=== PATIENT | female | born 1945 | race African-American/Black ===

== ENCOUNTER → 2016-07-29 | Outpatient (CLI) | payer MEDICARE ==
[2016-07-29 08:42] LABS: ABSOLUTE EOSINOPHILS # (AUTO) 0.1 10^3/uL (0.0-0.6); ABSOLUTE LYMPHOCYTES (AUTO) 1.5 10^3/uL (0.5-4.7); ABSOLUTE MONOCYTES (AUTO) 0.4 10^3/uL (0.1-1.4); ABSOLUTE NEUT (AUTO) 2.4 10^3/uL (1.7-8.2); BASOPHILS % (AUTO) 1.1 % (0-2); EOSINOPHILS % (AUTO) 1.3 % (0-6); HEMATOCRIT 38.5 % (36.0-47.0); HEMOGLOBIN 12.4 g/dL (12.0-15.5); HGB HCT DIFFERENCE -1.3; LYMPHOCYTES % (AUTO) 33.7 % (13-45); MEAN CORPUSCULAR HEMOGLOBIN 25.5 pg (27.0-33.4); MEAN CORPUSCULAR HGB CONC 32.1 g/dL (32.0-36.0); MEAN CORPUSCULAR VOLUME 80 fl (80-97); MONOCYTES % (AUTO) 9.3 % (3-13); RED BLOOD COUNT 4.84 10^6/uL (3.72-5.28); RED CELL DISTRIBUTION WIDTH 15.4 % (11.5-14.0); SEGMENTED NEUTROPHILS % (AUTO) 54.6 % (42-78); WHITE BLOOD COUNT 4.4 10^3/uL (4.0-10.5)
[2016-07-29 09:10] LABS: ALANINE AMINOTRANSFERASE 23 U/L (9-52); ALBUMIN 4.2 g/dL (3.5-5.0); ALKALINE PHOSPHATASE 64 U/L (38-126); ANION GAP 13 (5-19); ASPARTATE AMINO TRANSFERASE 18 U/L (14-36); BILIRUBIN,TOTAL 0.6 mg/dL (0.2-1.3); BLOOD UREA NITROGEN 16 mg/dL (7-20); CALCIUM 9.4 mg/dL (8.4-10.2); CARBON DIOXIDE 26 mmol/L (22-30); CHLORIDE 105 mmol/L (98-107); CHOLESTEROL 153.07 mg/dL (0-200); CREATININE RESULT 0.83 mg/dL (0.52-1.25); Direct HDL 50 mg/dL (>40); GLUCOSE 106 mg/dL (75-110); POTASSIUM 4.3 mmol/L (3.6-5.0); SODIUM 144.2 mmol/L (137-145); TOTAL PROTEIN 7.4 g/dL (6.3-8.2); TRIGLYCERIDES 81 mg/dL (<150)
[2016-07-29 09:20] LABS: DIRECT LDL 75 mg/dL (<100)
== END ==
LOC: OD 07:53
PROVIDERS: ATTEND Internal Medicine
DX: E11.9 Type 2 diabetes mellitus without complications (principal); I10 Essential (primary) hypertension; E78.5 Hyperlipidemia, unspecified; M53.83 Other specified dorsopathies, cervicothoracic region
CPT/HCPCS: 36415; 80053; 80061; 83036; 85025

== ENCOUNTER → 2017-09-08 | Outpatient (CLI) | payer MEDICARE, OTHER ==
--- NOTE | 2017-09-08 14:37 | RADIOLOGY REPORT (SQ) ---
EXAM DESCRIPTION: CAROTID DOPPLER COMPLETED DATE/TIME: 09/08/2017 1:56 pm REASON FOR STUDY: CAROTID BRUIT R09.89 OTH SYMPTOMS AND SIGNS INVOLVING THE CIRC AND RESP SY COMPARISON: 09/23/2013 TECHNIQUE: Grayscale ultrasound, Doppler velocity and spectra, and color Doppler images acquired of the extra-cranial carotid and vertebral arteries. Images stored on PACS. LIMITATIONS: None. FINDINGS: RIGHT CAROTID CCA Velocities: Within normal limits. ICA Velocities Peak systolic 1.23 m/s. End diastolic 0.45 m/s. Proximal ICA/CCA peak systolic ratio 1.8. Mild intimal thickening in the bulb and proximal ICA. LEFT CAROTID CCA Velocities: Within normal limits. ICA Velocities Peak systolic 0.60 m/s. End diastolic 0.14 m/s. Proximal ICA/CCA peak systolic ratio 1.0. Mild intimal thickening in the bulb and proximal ICA. VERTEBRAL ARTERIES: Antegrade flow. Normal waveforms. SUBCLAVIAN ARTERIES: Not imaged. OTHER: No other significant finding. IMPRESSION: NO HEMODYNAMICALLY SIGNIFICANT STENOSIS. COMMENT: Quality ID #[id number]: Velocity criteria are extrapolated from the diameter data as defined by t he Society of Radiologists in Ultrasound Consensus Conference. Radiology 2003: 229; 340-346. TECHNICAL DOCUMENTATION: JOB ID: [id number] [employer]- All Rights Reserved Reading location - IP/workstation name: [email or web address]
== END ==
LOC: SP 12:42
PROVIDERS: ATTEND Internal Medicine
DX: R09.89 Other specified symptoms and signs involving the circulatory and respiratory systems (principal)
CPT/HCPCS: 93880

== ENCOUNTER → 2018-03-09 | Outpatient (CLI) | payer MEDICARE ==
[2018-03-09 11:12] LABS: ALANINE AMINOTRANSFERASE 24 U/L (9-52); ALBUMIN 4.2 g/dL (3.5-5.0); ALKALINE PHOSPHATASE 57 U/L (38-126); ANION GAP 11 (5-19); ASPARTATE AMINO TRANSFERASE 21 U/L (14-36); BILIRUBIN,DIRECT 0.3 mg/dL (0.0-0.4); BILIRUBIN,TOTAL 0.5 mg/dL (0.2-1.3); BLOOD UREA NITROGEN 14 mg/dL (7-20); CALCIUM 9.6 mg/dL (8.4-10.2); CARBON DIOXIDE 27 mmol/L (22-30); CHLORIDE 105 mmol/L (98-107); GLUCOSE 99 mg/dL (75-110); POTASSIUM 4.6 mmol/L (3.6-5.0); SODIUM 142.9 mmol/L (137-145); TOTAL PROTEIN 7.8 g/dL (6.3-8.2); TRIGLYCERIDES 85 mg/dL (<150)
[2018-03-09 11:23] LABS: DIRECT LDL 72 mg/dL (<100)
[2018-03-10 14:40] LABS: CREATININE URINE 144.7 mg/dL (Not Estab.); MICROALBUMIN URINE 3.2 ug/mL (Not Estab.)
[2018-03-10 16:39] LABS: ABSOLUTE BASOPHILS # (AUTO) 0.1 10^3/uL (0.0-0.2); ABSOLUTE EOSINOPHILS # (AUTO) 0.1 10^3/uL (0.0-0.6); ABSOLUTE LYMPHOCYTES (AUTO) 2.3 10^3/uL (0.5-4.7); ABSOLUTE MONOCYTES (AUTO) 1.1 10^3/uL (0.1-1.4); ABSOLUTE NEUT (AUTO) 4.7 10^3/uL (1.7-8.2); BASOPHILS % (AUTO) 0.7 % (0-2); EOSINOPHILS % (AUTO) 1.1 % (0-6); HEMATOCRIT 34.7 % (36.0-47.0); HEMOGLOBIN 11.1 g/dL (12.0-15.5); LYMPHOCYTES % (AUTO) 27.6 % (13-45); MEAN CORPUSCULAR HEMOGLOBIN 23.5 pg (27.0-33.4); MEAN CORPUSCULAR HGB CONC 31.9 g/dL (32.0-36.0); MEAN CORPUSCULAR VOLUME 74 fl (80-97); MONOCYTES % (AUTO) 13.1 % (3-13); PLATELET COUNT 241 10^3/uL (150-450); RED BLOOD COUNT 4.72 10^6/uL (3.72-5.28); RED CELL DISTRIBUTION WIDTH 17.9 % (11.5-14.0); SEGMENTED NEUTROPHILS % (AUTO) 57.5 % (42-78); TOTAL CELLS COUNTED % (AUTO) 100 %; WHITE BLOOD COUNT 8.3 10^3/uL (4.0-10.5)
== END ==
LOC: OD 09:39
PROVIDERS: ATTEND Internal Medicine
DX: E11.9 Type 2 diabetes mellitus without complications (principal); I10 Essential (primary) hypertension; E78.5 Hyperlipidemia, unspecified; I25.10 Atherosclerotic heart disease of native coronary artery without angina pectoris
CPT/HCPCS: 36415; 80053; 80061; 82043; 82570; 83036; 84443; 85025

== ENCOUNTER 2018-03-13 13:02 | Emergency (ER) | payer MEDICARE ==
--- NOTE | 2018-03-13 13:40 | ER Document Report ---
ED Medical Screen (RME) - General Chief Complaint: Rectal Bleeding Stated Complaint: BLOOD IN STOOL Time Seen by Provider: 03/13/18 13:39 Mode of Arrival: Ambulatory Information source: Patient TRAVEL OUTSIDE OF THE [place] IN LAST 30 DAYS: No - HPI Patient complains to provider of: frectal bleeding Onset: Yesterday - pt. with multiple episodes of bright red blood in stool yesterday and today - Related Data Allergies/Adverse Reactions: No Known Allergies Allergy (Verified 03/13/18 13:04) Past Medical History - Past Medical History Cardiac Medical History: Reports: Hx Hypercholesterolemia, Hx Hypertension Denies: Hx Coronary Artery Disease, Hx Heart Attack Pulmonary Medical History: Denies: Hx Asthma, Hx Bronchitis, Hx COPD, Hx Pneumonia Neurological Medical History: Denies: Hx Cerebrovascular Accident, Hx Seizures Endocrine Medical History: Reports: Hx Diabetes Mellitus Type 2 Musculoskeltal Medical History: Reports Hx Arthritis Past Surgical History: Reports: Hx Gynecologic Surgery - hysterectomy, Hx Hysterectomy - Immunizations Hx Diphtheria, Pertussis, Tetanus Vaccination: Yes Physical Exam - Vital signs Vitals: Temp Pulse Resp BP Pulse Ox 99.0 F 81 20 146/80 H 97 03/13/18 13:20 03/13/18 13:20 03/13/18 13:20 03/13/18 13:20 03/13/18 13:20 Course - Vital Signs Vital signs: Temp Pulse Resp BP Pulse Ox 99.0 F 81 20 146/80 H 97 03/13/18 13:20 03/13/18 13:20 03/13/18 13:20 03/13/18 13:20 03/13/18 13:20 Doctor's Discharge - Discharge Referrals: RONA SMITH MD [Primary Care Provider] - Follow up as needed
[2018-03-13 14:07] LABS: ABSOLUTE BASOPHILS # (AUTO) 0.1 10^3/uL (0.0-0.2); ABSOLUTE LYMPHOCYTES (AUTO) 1.9 10^3/uL (0.5-4.7); ABSOLUTE MONOCYTES (AUTO) 0.7 10^3/uL (0.1-1.4); BASOPHILS % (AUTO) 0.9 % (0-2); EOSINOPHILS % (AUTO) 0.8 % (0-6); LYMPHOCYTES % (AUTO) 33.1 % (13-45); MEAN CORPUSCULAR HEMOGLOBIN 23.5 pg (27.0-33.4); MEAN CORPUSCULAR HGB CONC 32.3 g/dL (32.0-36.0); MEAN CORPUSCULAR VOLUME 73 fl (80-97); PLATELET COUNT 276 10^3/uL (150-450); RED BLOOD COUNT 4.66 10^6/uL (3.72-5.28); RED CELL DISTRIBUTION WIDTH 18.1 % (11.5-14.0); SEGMENTED NEUTROPHILS % (AUTO) 53.2 % (42-78); TOTAL CELLS COUNTED % (AUTO) 100 %; WHITE BLOOD COUNT 5.7 10^3/uL (4.0-10.5)
[2018-03-13 14:31] LABS: ALANINE AMINOTRANSFERASE 20 U/L (9-52); ALBUMIN 4.2 g/dL (3.5-5.0); ALKALINE PHOSPHATASE 58 U/L (38-126); ANION GAP 10 (5-19); ASPARTATE AMINO TRANSFERASE 22 U/L (14-36); BILIRUBIN,DIRECT 0.1 mg/dL (0.0-0.4); BILIRUBIN,TOTAL 0.5 mg/dL (0.2-1.3); BLOOD UREA NITROGEN 12 mg/dL (7-20); CARBON DIOXIDE 27 mmol/L (22-30); CHLORIDE 107 mmol/L (98-107); GLUCOSE 80 mg/dL (75-110); POTASSIUM 4.3 mmol/L (3.6-5.0); SODIUM 144.2 mmol/L (137-145)
--- NOTE | 2018-03-13 16:30 | ER Document Report ---
ED GI Bleed / Rectal Pain - General Chief Complaint: Rectal Bleeding Stated Complaint: BLOOD IN STOOL Time Seen by Provider: 03/13/18 13:39 Mode of Arrival: Ambulatory Notes: 72-year-old female to the emergency department chief complaint of rectal bleeding. Patient states that she has had hemorrhoids in the past. Thinks that she has a hemorrhoid but is unsure and wants to get it checked out. Denies any other symptoms at this time. Denies any major pain in the rectum. TRAVEL OUTSIDE OF THE [place] IN LAST 30 DAYS: No - HPI Patient complains to provider of: Bright red bld from rect. Onset: Last week Timing/Duration: Intermittent Quality of pain: No pain - Related Data Allergies/Adverse Reactions: No Known Allergies Allergy (Verified 03/13/18 13:04) Past Medical History - General Information source: Patient - Social History Smoking Status: Never Smoker Frequency of alcohol use: None Drug Abuse: None Family History: Reviewed & Not Pertinent Patient has suicidal ideation: No Patient has homicidal ideation: No - Past Medical History Cardiac Medical History: Reports: Hx Hypercholesterolemia, Hx Hypertension Denies: Hx Coronary Artery Disease, Hx Heart Attack Pulmonary Medical History: Denies: Hx Asthma, Hx Bronchitis, Hx COPD, Hx Pneumonia Neurological Medical History: Denies: Hx Cerebrovascular Accident, Hx Seizures Endocrine Medical History: Reports: Hx Diabetes Mellitus Type 2 Renal/ Medical History: Denies: Hx Peritoneal Dialysis Musculoskeletal Medical History: Reports Hx Arthritis Past Surgical History: Reports: Hx Gynecologic Surgery - hysterectomy, Hx Hysterectomy - Immunizations Hx Diphtheria, Pertussis, Tetanus Vaccination: Yes Review of Systems - Review of Systems Notes: Constitutional: denies: Chills, Diaphoresis, Fever, Malaise, Weakness EENT: denies: Eye discharge, Blurred vision, Tearing, Double vision, Nose congestion, Nose discharge, Throat swelling, Mouth pain Cardiovascular: denies: Palpitations, Heart racing, Orthopnea, Dyspnea, Chest pain Respiratory: denies: Cough, Hurts to breathe, Wheezing, Shortness of breath Gastrointestinal: denies: Abdominal pain, Diarrhea, Nausea, Vomiting, Black stools,. Does complain of bright red blood in stool Genitourinary: denies: Burning, Dysuria, Discharge, Frequency, Flank pain, Hematuria Musculoskeletal: denies: Joint pain, Joint swelling, Muscle pain, Muscle stiffness, back pain Hematologic/Lymphatic: denies: Anemia, Easy bleeding, Easy bruising, Blood clots Neurological/Psychological: denies: Confusion, Dementia, Depression, Loss of consciousness Skin: No lesions, no masses, no skin breakdown, no abscesses Physical Exam - Vital signs Vitals: Temp Pulse Resp BP Pulse Ox 99.0 F 81 20 146/80 H 97 03/13/18 13:20 03/13/18 13:20 03/13/18 13:20 03/13/18 13:20 03/13/18 13:20 Interpretation: Normal - General General appearance: Appears well, Alert - HEENT Head: Normocephalic, Atraumatic Eyes: Normal Pupils: PERRL - Respiratory Respiratory status: No respiratory distress Chest status: Nontender Breath sounds: Normal Chest palpation: Normal - Cardiovascular Rhythm: Regular Heart sounds: Normal auscultation Murmur: No - Abdominal Inspection: Normal Distension: No distension Bowel sounds: Normal Tenderness: Nontender Organomegaly: No organomegaly - Rectal Stool: Heme negative Hemorrhoids: Internal - Back Back: Normal, Nontender - Extremities General upper extremity: Normal inspection, Nontender, Normal color, Normal ROM , Normal temperature General lower extremity: Normal inspection, Nontender, Normal color, Normal ROM , Normal temperature, Normal weight bearing. No: Chet's sign - Neurological Neuro grossly intact: Yes Cognition: Normal Orientation: AAOx4 Froylan Coma Scale Eye Opening: Spontaneous Froylan Coma Scale Verbal: Oriented Froylan Coma Scale Motor: Obeys Commands Froylan Coma Scale Total: 15 Speech: Normal Motor strength normal: LUE, RUE, LLE, RLE Sensory: Normal - Psychological Associated symptoms: Normal affect, Normal mood - Skin Skin Temperature: Warm Skin Moisture: Dry Skin Color: Normal Course - Re-evaluation Re-evalutation: 03/13/18 20:16 Patient does have evidence of an internal hemorrhoid. No active bleeding at this time. I have given her strict instructions that although I think it is not hemorrhoid there is always a possibility that this could represent some other pathology such as a rectal carcinoma. I have given her follow-up information for both a general surgeon as well as a crossbar frame wirer. At the minimum patient needs an in office anoscopy to evaluate this more appropriately. Patient did have a colonoscopy within the last 12 months. Patient is comfortable with this plan. At this time we will discharge her in stable condition. - Vital Signs Vital signs: Temp Pulse Resp BP Pulse Ox 98.6 F 73 14 123/70 98 03/13/18 16:54 03/13/18 16:54 03/13/18 16:54 03/13/18 16:54 03/13/18 16:54 - Laboratory Result Diagrams: 03/13/18 13:50 03/13/18 13:50 Laboratory results interpreted by me: 03/13/18 13:50 Hgb 11.0 L Hct 34.0 L MCV 73 L MCH 23.5 L RDW 18.1 H Discharge - Discharge Clinical Impression: Internal hemorrhoid Condition: Good Disposition: HOME, SELF-CARE Instructions: Hemorrhoids ([facility]), Rectal Bleeding, Unclear Cause ([facility]) Additional Instructions: It is highly likely that you have an internal hemorrhoid however I am not a general surgeon or crossbar frame wirer. Anytime that you can feel a mass on physical exam and you are having bleeding this needs to be evaluated by a surgeon or crossbar frame wirer. I have given you follow-up information for both. Please schedule an appointment as soon as possible with either a crossbar frame wirer or a general surgeon to have a repeat exam performed. In the event that you begin to have any worsening bleeding, pain, passing out or other symptoms please return immediately Referrals: RONA SMITH MD [Primary Care Provider] - Follow up as needed NAE MARINA MD [[facility]] - Follow up in 3-5 days CAMPOS MAY MD [ACTIVE STAFF] - Follow up in 3-5 days
[2018-03-13 16:56] VITALS: BP 123/70
== END 2018-03-13 16:56 | disposition home or self-care (01) ==
LOC: ER 13:02
DX: K64.8 Other hemorrhoids (principal); K62.5 Hemorrhage of anus and rectum; E11.9 Type 2 diabetes mellitus without complications; I10 Essential (primary) hypertension
CPT/HCPCS: 36415; 80053; 82272; 82728; 83540; 83550; 85025; 99283

== ENCOUNTER → 2018-03-13 | Outpatient (CLI) | payer MEDICARE ==
[2018-03-13 12:49] LABS: IRON(TIBC) 34.4 ug/dL (37-170)
[2018-03-13 13:25] LABS: FERRITIN 9.85 ng/mL (11.1-264.0)
== END ==
LOC: LAB 10:21
PROVIDERS: ATTEND Internal Medicine
DX: D64.9 Anemia, unspecified (principal)
CPT/HCPCS: 82728; 83540; 83550

== ENCOUNTER 2018-07-26 13:32 | Emergency (ER) | payer MEDICARE ==
--- NOTE | 2018-07-26 14:30 | ER Document Report ---
ED General - General Chief Complaint: Shortness Of Breath Stated Complaint: SHORT OF BREATH,CHEST TIGHTNESS Time Seen by Provider: 07/26/18 14:14 Primary Care Provider: RONA SMITH MD [Primary Care Provider] - Follow up as needed Notes: 73-year-old female patient emergency department for evaluation of "shortness of breath and not feeling well". He really denies chest pain but states that she feels a funny feeling in her chest every now and then. Feels like she cannot catch her breath but not necessarily what she would describe her shortness of breath. States that the symptoms have been going on and off for more than 2 months. Her son is in town and she mentioned that she felt a little funny feeling in her chest so he made her come in here and get checked out. Currently, patient denies any chest pain. Patient followed locally by Dr. Smith. She does not know what medication she takes but has a list for me to look at. States that she has been taking all of her medications. TRAVEL OUTSIDE OF THE [place] IN LAST 30 DAYS: No - HPI Onset/Duration: Gradual Quality of pain: No pain Severity: Mild Pain Level: 0 Associated symptoms: Shortness of breath - Related Data Allergies/Adverse Reactions: No Known Allergies Allergy (Verified 03/13/18 13:04) Past Medical History - General Information source: Patient - Social History Smoking Status: Never Smoker Frequency of alcohol use: None Drug Abuse: None Lives with: Alone Family History: Reviewed & Not Pertinent - Past Medical History Cardiac Medical History: Reports: Hx Hypercholesterolemia, Hx Hypertension Denies: Hx Coronary Artery Disease, Hx Heart Attack Pulmonary Medical History: Denies: Hx Asthma, Hx Bronchitis, Hx COPD, Hx Pneumonia Neurological Medical History: Denies: Hx Cerebrovascular Accident, Hx Seizures Endocrine Medical History: Reports: Hx Diabetes Mellitus Type 2 Renal/ Medical History: Denies: Hx Peritoneal Dialysis Musculoskeletal Medical History: Reports Hx Arthritis Past Surgical History: Reports: Hx Gynecologic Surgery - hysterectomy, Hx Hysterectomy - Immunizations Hx Diphtheria, Pertussis, Tetanus Vaccination: Yes Review of Systems - Review of Systems Notes: Constitutional: denies: Chills, Diaphoresis, Fever, Malaise, Weakness EENT: denies: Eye discharge, Blurred vision, Tearing, Double vision, Nose congestion, Nose discharge, Throat swelling, Mouth pain Cardiovascular: denies: Palpitations, Heart racing, Orthopnea, Dyspnea, Chest pain Respiratory: denies: Cough, Hurts to breathe, Wheezing, +Shortness of breath Gastrointestinal: denies: Abdominal pain, Diarrhea, Nausea, Vomiting, Black stools, bright red blood in stool Genitourinary: denies: Burning, Dysuria, Discharge, Frequency, Flank pain, Hematuria Musculoskeletal: denies: Joint pain, Joint swelling, Muscle pain, Muscle stiffness, back pain Hematologic/Lymphatic: denies: Anemia, Easy bleeding, Easy bruising, Blood clots Neurological/Psychological: denies: Confusion, Dementia, Depression, Loss of consciousness Skin: No lesions, no masses, no skin breakdown, no abscesses Physical Exam - Vital signs Vitals: Temp Pulse Resp BP Pulse Ox 98.4 F 73 16 174/76 H 98 07/26/18 13:39 07/26/18 13:39 07/26/18 13:39 07/26/18 13:39 07/26/18 13:39 Interpretation: Normal - General General appearance: Appears well, Alert - HEENT Head: Normocephalic, Atraumatic Eyes: Normal Pupils: PERRL - Respiratory Respiratory status: No respiratory distress Chest status: Nontender Breath sounds: Normal Chest palpation: Normal - Cardiovascular Rhythm: Regular Heart sounds: Normal auscultation Murmur: No - Abdominal Inspection: Normal Distension: No distension Bowel sounds: Normal Tenderness: Nontender Organomegaly: No organomegaly - Back Back: Normal, Nontender - Extremities General upper extremity: Normal inspection, Nontender, Normal color, Normal ROM, Normal temperature. No: Edema General lower extremity: Normal inspection, Nontender, Normal color, Normal ROM, Normal temperature, Normal weight bearing. No: Edema, Chet's sign - Neurological Neuro grossly intact: Yes Cognition: Normal Orientation: AAOx4 Froylan Coma Scale Eye Opening: Spontaneous Froylan Coma Scale Verbal: Oriented Orange Coma Scale Motor: Obeys Commands Orange Coma Scale Total: 15 Speech: Normal Motor strength normal: LUE, RUE, LLE, RLE Sensory: Normal - Psychological Associated symptoms: Normal affect, Normal mood - Skin Skin Temperature: Warm Skin Moisture: Dry Skin Color: Normal, Other - No open sores or lesions on her feet. Course - Re-evaluation Re-evalutation: 07/26/18 17:18 Laboratory 07/26/18 07/26/18 07/26/18 14:14 14:14 14:14 WBC 5.2 RBC 4.83 Hgb 13.6 Hct 40.3 MCV 84 MCH 28.2 MCHC 33.8 RDW 14.4 H Plt Count 227 Seg Neutrophils % 56.7 Lymphocytes % 30.8 Monocytes % 10.7 Eosinophils % 0.5 Basophils % 1.3 Absolute Neutrophils 3.0 Absolute Lymphocytes 1.6 Absolute Monocytes 0.6 Absolute Eosinophils 0.0 Absolute Basophils 0.1 Sodium 144.1 Potassium 4.3 Chloride 108 H Carbon Dioxide 26 Anion Gap 10 BUN 13 Creatinine 0.72 Est GFR ( Amer) > 60 Est GFR (Non-Af Amer) > 60 Glucose 87 Calcium 9.7 Total Bilirubin 0.5 Direct Bilirubin 0.2 Neonat Total Bilirubin Not Reportable Neonat Direct Bilirubin Not Reportable Neonat Indirect Bili Not Reportable AST 22 ALT 21 Alkaline Phosphatase 54 Creatine Kinase 66 CK-MB (CK-2) 0.35 Troponin I < 0.012 NT-Pro-B Natriuret Pep 67 Total Protein 7.5 Albumin 4.4 Urine Color Urine Appearance Urine pH Ur Specific [place] Urine Protein Urine Glucose (UA) Urine Ketones Urine Blood Urine Nitrite Urine Bilirubin Urine Urobilinogen Ur Leukocyte Esterase Urine WBC (Auto) Urine RBC (Auto) Squamous Epi Cells Auto Urine Mucus (Auto) Urine Ascorbic Acid 07/26/18 16:15 WBC RBC Hgb Hct MCV MCH MCHC RDW Plt Count Seg Neutrophils % Lymphocytes % Monocytes % Eosinophils % Basophils % Absolute Neutrophils Absolute Lymphocytes Absolute Monocytes Absolute Eosinophils Absolute Basophils Sodium Potassium Chloride Carbon Dioxide Anion Gap BUN Creatinine Est GFR ( Amer) Est GFR (Non-Af Amer) Glucose Calcium Total Bilirubin Direct Bilirubin Neonat Total Bilirubin Neonat Direct Bilirubin Neonat Indirect Bili AST ALT Alkaline Phosphatase Creatine Kinase CK-MB (CK-2) Troponin I NT-Pro-B Natriuret Pep Total Protein Albumin Urine Color STRAW Urine Appearance CLEAR Urine pH 6.0 Ur Specific [place] 1.005 Urine Protein NEGATIVE Urine Glucose (UA) NEGATIVE Urine Ketones NEGATIVE Urine Blood NEGATIVE Urine Nitrite NEGATIVE Urine Bilirubin NEGATIVE Urine Urobilinogen NEGATIVE Ur Leukocyte Esterase NEGATIVE Urine WBC (Auto) 0 Urine RBC (Auto) 0 Squamous Epi Cells Auto <1 Urine Mucus (Auto) RARE Urine Ascorbic Acid NEGATIVE Chest X-Ray 07/26/18 14:27 IMPRESSION: NO ACUTE FINDINGS. Patient has no significant abnormalities seen on labs today. She has not had any active chest pain at this time or prior to arrival. Symptoms have been present for several months. Patient was encouraged to come here by her son. At this time patient would like to go home. I find nothing that indicates she is having any major acute issues. Patient would do well to be followed by her regular doctor for this condition if symptoms persist. - Vital Signs Vital signs: Temp Pulse Resp BP Pulse Ox 98.4 F 73 16 152/89 H 99 07/26/18 13:39 07/26/18 13:39 07/26/18 14:06 07/26/18 14:06 07/26/18 14:06 - Laboratory Result Diagrams: 07/26/18 14:14 07/26/18 14:14 Laboratory results interpreted by me: 07/26/18 07/26/18 14:14 14:14 RDW 14.4 H Chloride 108 H - EKG Interpretation by Me EKG shows normal: Sinus rhythm, [place], Intervals, QRS Complexes, ST-T Waves Discharge - Discharge Clinical Impression: Palpitations Condition: Good Disposition: HOME, SELF-CARE Instructions: Palpitations (Irregular or Rapid Heartrate) ([facility]) Additional Instructions: Please follow-up with your regular doctor for further outpatient testing and t reatment. Return for worsening or concerns Referrals: RONA SMITH MD [Primary Care Provider] - Follow up tomorrow
[2018-07-26 14:38] LABS: ABSOLUTE BASOPHILS # (AUTO) 0.1 10^3/uL (0.0-0.2); ABSOLUTE LYMPHOCYTES (AUTO) 1.6 10^3/uL (0.5-4.7); ABSOLUTE MONOCYTES (AUTO) 0.6 10^3/uL (0.1-1.4); BASOPHILS % (AUTO) 1.3 % (0-2); EOSINOPHILS % (AUTO) 0.5 % (0-6); HEMATOCRIT 40.3 % (36.0-47.0); HEMOGLOBIN 13.6 g/dL (12.0-15.5); LYMPHOCYTES % (AUTO) 30.8 % (13-45); MEAN CORPUSCULAR HEMOGLOBIN 28.2 pg (27.0-33.4); MEAN CORPUSCULAR HGB CONC 33.8 g/dL (32.0-36.0); MEAN CORPUSCULAR VOLUME 84 fl (80-97); MONOCYTES % (AUTO) 10.7 % (3-13); PLATELET COUNT 227 10^3/uL (150-450); RED BLOOD COUNT 4.83 10^6/uL (3.72-5.28); RED CELL DISTRIBUTION WIDTH 14.4 % (11.5-14.0); SEGMENTED NEUTROPHILS % (AUTO) 56.7 % (42-78); TOTAL CELLS COUNTED % (AUTO) 100 %; WHITE BLOOD COUNT 5.2 10^3/uL (4.0-10.5)
[2018-07-26 15:00] LABS: ALANINE AMINOTRANSFERASE 21 U/L (9-52); ALBUMIN 4.4 g/dL (3.5-5.0); ALKALINE PHOSPHATASE 54 U/L (38-126); ANION GAP 10 (5-19); ASPARTATE AMINO TRANSFERASE 22 U/L (14-36); BILIRUBIN,DIRECT 0.2 mg/dL (0.0-0.4); BILIRUBIN,TOTAL 0.5 mg/dL (0.2-1.3); BLOOD UREA NITROGEN 13 mg/dL (7-20); CALCIUM 9.7 mg/dL (8.4-10.2); CARBON DIOXIDE 26 mmol/L (22-30); CHLORIDE 108 mmol/L (98-107); CREATINE KINASE 66 U/L (30-135); GLUCOSE 87 mg/dL (75-110); POTASSIUM 4.3 mmol/L (3.6-5.0); SODIUM 144.1 mmol/L (137-145); TOTAL PROTEIN 7.5 g/dL (6.3-8.2)
[2018-07-26 15:09] LABS: CREATINE KINASE MB 0.35 ng/mL (<4.55); NT PRO BNP 67 pg/mL (5-900)
[2018-07-26 15:10] LABS: TROPONIN I < 0.012 ng/mL
--- NOTE | 2018-07-26 15:38 | RADIOLOGY REPORT (SQ) ---
EXAM DESCRIPTION: CHEST SINGLE VIEW COMPLETED DATE/TIME: 07/26/2018 3:27 pm REASON FOR STUDY: sob COMPARISON: 06/12/2011 TECHNIQUE: Single frontal radiographic view of the chest acquired. NUMBER OF VIEWS: One view. LIMITATIONS: None. FINDINGS: LUNGS AND PLEURA: No pneumothorax. No consolidation or pleural effusion. MEDIASTINUM AND HILAR STRUCTURES: Stable. HEART AND VASCULAR STRUCTURES: Stable. BONES: No acute findings. HARDWARE: None in the chest. OTHER: No other significant finding. IMPRESSION: NO ACUTE FINDINGS. TECHNICAL DOCUMENTATION: JOB ID: [id number] 2010 [employer]- All Rights Reserved Reading location - IP/workstation name: [email or web address]
--- NOTE | 2018-07-26 15:50 | EKG REPORT ---
SEVERITY:- ABNORMAL ECG - SINUS RHYTHM LEFT AXIS DEVIATION NONSPECIFIC T ABNORMALITIES, ANT-LAT LEADS : Confirmed by: Ke Tinoco MD 26-Jul-2018 15:50:08
[2018-07-26 16:41] LABS: APPEARANCE,URINE CLEAR; BILIRUBIN,URINE NEGATIVE (NEGATIVE); COLOR,URINE STRAW; GLUCOSE, URINE NEGATIVE (NEGATIVE); KETONES,URINE NEGATIVE (NEGATIVE); LEUKOCYTE ESTERASE,URINE NEGATIVE (NEGATIVE); NITRITE,URINE NEGATIVE (NEGATIVE); PROTEIN,URINE NEGATIVE (NEGATIVE); URINE SPECIFIC GRAVITY 1.005; UROBILINOGEN,URINE NEGATIVE mg/dL (<2.0)
[2018-07-26 17:56] VITALS: BP 121/76
== END 2018-07-26 17:55 | disposition home or self-care (01) ==
LOC: ER 13:32
DX: R00.2 Palpitations (principal); R06.02 Shortness of breath; I10 Essential (primary) hypertension; E11.9 Type 2 diabetes mellitus without complications; Z79.899 Other long term (current) drug therapy
CPT/HCPCS: 36415; 71045; 80053; 81001; 82550; 82553; 83880; 84484; 85025; 93005; 93010; 99285

== ENCOUNTER → 2019-03-25 | Outpatient (CLI) | payer MEDICARE ==
[2019-03-25 10:18] LABS: ABSOLUTE BASOPHILS # (AUTO) 0.1 10^3/uL (0.0-0.2); ABSOLUTE EOSINOPHILS # (AUTO) 0.1 10^3/uL (0.0-0.6); ABSOLUTE LYMPHOCYTES (AUTO) 1.8 10^3/uL (0.5-4.7); ABSOLUTE MONOCYTES (AUTO) 0.5 10^3/uL (0.1-1.4); ABSOLUTE NEUT (AUTO) 2.6 10^3/uL (1.7-8.2); EOSINOPHILS % (AUTO) 1.5 % (0-6); HEMATOCRIT 40.7 % (36.0-47.0); HEMOGLOBIN 13.1 g/dL (12.0-15.5); MEAN CORPUSCULAR HEMOGLOBIN 26.4 pg (27.0-33.4); MEAN CORPUSCULAR HGB CONC 32.2 g/dL (32.0-36.0); MEAN CORPUSCULAR VOLUME 82 fl (80-97); MONOCYTES % (AUTO) 9.4 % (3-13); PLATELET COUNT 183 10^3/uL (150-450); RED BLOOD COUNT 4.96 10^6/uL (3.72-5.28); RED CELL DISTRIBUTION WIDTH 15.7 % (11.5-14.0); SEGMENTED NEUTROPHILS % (AUTO) 52.1 % (42-78); TOTAL CELLS COUNTED % (AUTO) 100 %
[2019-03-25 10:21] LABS: ALBUMIN 4.1 g/dL (3.5-5.0); ALKALINE PHOSPHATASE 53 U/L (38-126); ANION GAP 10 (5-19); ASPARTATE AMINO TRANSFERASE 26 U/L (14-36); BILIRUBIN,DIRECT 0.2 mg/dL (0.0-0.4); BILIRUBIN,TOTAL 0.5 mg/dL (0.2-1.3); BLOOD UREA NITROGEN 10 mg/dL (7-20); CALCIUM 9.4 mg/dL (8.4-10.2); CARBON DIOXIDE 26 mmol/L (22-30); CHLORIDE 109 mmol/L (98-107); CHOLESTEROL 151.46 mg/dL (0-200); GLUCOSE 92 mg/dL (75-110); POTASSIUM 4.2 mmol/L (3.6-5.0); TOTAL PROTEIN 7.8 g/dL (6.3-8.2); TRIGLYCERIDES 73 mg/dL (<150)
[2019-03-25 10:32] LABS: DIRECT LDL 91 mg/dL (<100)
[2019-03-26 12:37] LABS: MICROALBUMIN URINE 4.1 ug/mL (Not Estab.)
== END ==
LOC: OD 09:07
PROVIDERS: ATTEND Family Medicine Geriatric Medicine
DX: E11.9 Type 2 diabetes mellitus without complications (principal); I10 Essential (primary) hypertension; E78.5 Hyperlipidemia, unspecified; R53.83 Other fatigue
CPT/HCPCS: 36415; 80053; 80061; 82043; 82570; 83036; 84443; 85025

== ENCOUNTER 2020-04-29 16:23 | Observation (INO) | payer MEDICARE ==
--- NOTE | 2020-04-29 16:45 | EKG REPORT ---
SEVERITY:- ABNORMAL ECG - SINUS RHYTHM FIRST DEGREE AV BLOCK LEFT AXIS DEVIATION OLD ANTEROSEPTAL TN : Confirmed by: Ke Tinoco MD 29-Apr-2020 16:45:02
[2020-04-29] MEDS ORDERED: ASPIRIN 81 MG TABLET, CHEWABLE PO ONE (16:55)
--- NOTE | 2020-04-29 16:56 | ER Document Report ---
ED Medical Screen (RME) - General Chief Complaint: Chest Pain Stated Complaint: HEARTBURN Time Seen by Provider: 04/29/20 16:49 Primary Care Provider: RONA SMITH MD [Primary Care Provider] - Follow up as needed Notes: HPI: 74-year-old female with history of hypertension, diabetes, high cholesterol presenting for burning sensation in the chest over the last several weeks. Symptoms seem to be brought on by exertional activities and are relieved by rest. Not specifically changed by eating or drinking. Does report some shortness of breath with the episodes. 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 No history of heart attack. PHYSICAL EXAMINATION: Lung sounds are clear to auscultation regular rate and rhythm. I have greeted and performed a rapid initial assessment of this patient. A comprehensive ED assessment and evaluation of the patient, analysis of test results and completion of medical decision making process will be conducted by an additional ED providers. TRAVEL OUTSIDE OF THE [place] IN LAST 30 DAYS: No - Related Data Allergies/Adverse Reactions: No Known Allergies Allergy (Verified 04/29/20 16:49) Past Medical History - Past Medical History Cardiac Medical History: Reports: Hx Hypercholesterolemia, Hx Hypertension Denies: Hx Coronary Artery Disease, Hx Heart Attack Pulmonary Medical History: Denies: Hx Asthma, Hx Bronchitis, Hx COPD, Hx Pneumonia Neurological Medical History: Denies: Hx Cerebrovascular Accident, Hx Seizures Endocrine Medical History: Reports: Hx Diabetes Mellitus Type 2 Renal/ Medical History: Denies: Hx Peritoneal Dialysis Musculoskeltal Medical History: Reports Hx Arthritis Past Surgical History: Reports: Hx Gynecologic Surgery - hysterectomy, Hx Hysterectomy - Immunizations Hx Diphtheria, Pertussis, Tetanus Vaccination: Yes Physical Exam - Vital signs Vitals: Temp Pulse Resp BP Pulse Ox 98.5 F 82 18 144/62 H 100 04/29/20 16:48 04/29/20 16:48 04/29/20 16:48 04/29/20 16:48 04/29/20 16:48 Course - Vital Signs Vital signs: Temp Pulse Resp BP Pulse Ox 98.5 F 82 18 144/62 H 100 04/29/20 16:48 04/29/20 16:48 04/29/20 16:48 04/29/20 16:48 04/29/20 16:48 Doctor's Discharge - Discharge Referrals: RONA SMITH MD [Primary Care Provider] - Follow up as needed
[2020-04-29 17:40] LABS: PROTHROMBIN TIME 14.4 SEC (11.4-15.4)
[2020-04-29 17:52] LABS: ALBUMIN 4.4 g/dL (3.5-5.0); ALKALINE PHOSPHATASE 52 U/L (38-126); ANION GAP 12 (5-19); ASPARTATE AMINO TRANSFERASE 23 U/L (14-36); BILIRUBIN,DIRECT 0.1 mg/dL (0.0-0.4); BILIRUBIN,TOTAL 0.5 mg/dL (0.2-1.3); BLOOD UREA NITROGEN 12 mg/dL (7-20); CALCIUM 9.5 mg/dL (8.4-10.2); CARBON DIOXIDE 24 mmol/L (22-30); CHLORIDE 106 mmol/L (98-107); GLUCOSE 124 mg/dL (75-110); POTASSIUM 3.8 mmol/L (3.6-5.0); TOTAL PROTEIN 7.8 g/dL (6.3-8.2)
--- NOTE | 2020-04-29 17:55 | RADIOLOGY REPORT (SQ) ---
EXAM DESCRIPTION: Chest radiograph single view IMAGES COMPLETED DATE/TIME: 04/29/2020 4:23 pm REASON FOR STUDY: chest pain COMPARISON: 07/26/2018 EXAM PARAMETERS: NUMBER OF VIEWS: One view. TECHNIQUE: Single frontal radiographic view of the chest acquired. RADIATION DOSE: NA LIMITATIONS: None. FINDINGS: LUNGS AND PLEURA: Lungs are hyperinflated. No focal consolidation or pleural effusion. N o pneumothorax. MEDIASTINUM AND HILAR STRUCTURES: No masses. Contour normal. HEART AND VASCULAR STRUCTURES: Heart normal in size. Normal vasculature. BONES: No acute findings. HARDWARE: None in the chest. OTHER: No other significant finding. IMPRESSION: No acute cardiopulmonary disease. Hyperinflated lungs which can be seen with obstructiv e lung disease. TECHNICAL DOCUMENTATION: JOB ID: [id number] 2010 [employer]- All Rights Reserved Reading location - IP/workstation name: [email or web address]
--- NOTE | 2020-04-29 18:03 | ER Document Report ---
ED General - General Chief Complaint: Chest Pain Stated Complaint: HEARTBURN Time Seen by Provider: 04/29/20 16:49 Primary Care Provider: RONA SMITH MD [Primary Care Provider] - Follow up as needed Notes: 74-year-old female with a history of coronary risk factors diabetes and GERD presents with chest pain she described as burning from behind her sternum up into her neck/throat which occurs for seconds "she actually snaps her fingers the tell me how fast it lasts for the last several months. This is like a pain she had before which was treated as reflux. Is not radiate she has no shortness of breath or nausea when it occurs. She is not had it today. She had a stone sawyer in [facility] but does not know the name and does not know when she last had a stress test. She denies having history of heart attack per se. TRAVEL OUTSIDE OF THE [place] IN LAST 30 DAYS: No - Related Data Allergies/Adverse Reactions: No Known Allergies Allergy (Verified 04/29/20 16:49) Past Medical History - General Information source: Patient - Social History Smoking Status: Never Smoker Chew tobacco use (# tins/day): No Frequency of alcohol use: None Drug Abuse: None Family History: Reviewed & Not Pertinent - Past Medical History Cardiac Medical History: Reports: Hx Hypercholesterolemia, Hx Hypertension Denies: Hx Coronary Artery Disease, Hx Heart Attack Pulmonary Medical History: Denies: Hx Asthma, Hx Bronchitis, Hx COPD, Hx Pneumonia Neurological Medical History: Denies: Hx Cerebrovascular Accident, Hx Seizures Endocrine Medical History: Reports: Hx Diabetes Mellitus Type 2 Renal/ Medical History: Denies: Hx Peritoneal Dialysis Musculoskeletal Medical History: Reports Hx Arthritis Past Surgical History: Reports: Hx Gynecologic Surgery - hysterectomy, Hx Hysterectomy - Immunizations Hx Diphtheria, Pertussis, Tetanus Vaccination: Yes Review of Systems - Review of Systems Notes: REVIEW OF SYSTEMS GEN: Denies fever, chills, weight loss ENT: Denies sore throat, nasal discharge, ear pain EYES: Denies blurry vision, eye pain, discharge CV: Chest pain RESP: Denies cough, shortness of breath, wheezing GI: Denies abdominal pain, nausea, vomiting, diarrhea MSK: Denies joint pain/swelling, edema, SKIN: Denies rash, skin lesions LYMPH: Denies swollen glands/lymph nodes NEURO: Denies headache, focal weakness or numbness, dizziness PSYCH: Denies depression, suicidal or homicidal ideation PHYSICAL EXAMINATION General: No acute distress, well-nourished Head: Atraumatic, normocephalic ENT: Mouth normal, oropharynx moist, no exudates or tonsillar enlargement Eyes: Conjunctiva normal, pupils equal, lids normal Neck: No JVD, supple, no guarding CVS: Normal rate, regular rhythm, no murmurs Resp: No resp distress, equal and normal breath sounds bilaterally GI: Nondistended, soft, no tenderness to palpation, no rebound or guarding Ext: No deformities, no edema, normal range of motion in upper and lower ext Back: No CVA or midline TTP Skin: No rash, warm Lymphatic: No lymphadeopathy noted Neuro: Awake, alert. Face symmetric. GCS 15. Physical Exam - Vital signs Vitals: Temp Pulse Resp BP Pulse Ox 98.5 F 82 18 144/62 H 100 04/29/20 16:48 04/29/20 16:48 04/29/20 16:48 04/29/20 16:48 04/29/20 16:48 Course - Re-evaluation Re-evalutation: 04/29/20 18:43 Presents with chest pain that sounds more like reflux, has been treated as such in the past and improved, not currently in pain right now Vital signs look good patient looks well She has some very nonspecific EKG changes which I think are probably not ischemic in nature When calculated due to her age her heart score ends up being 4 She has a stone sawyer in [place] this pain has been going on for over a month, and I think she is safe for discharge so long as she can follow-up. Unfortunately after over an hour she is unable to read by the name of her stone sawyer and has not written it down but it is in the [facility] system, and given that I have privileges there as well as access to their medical record I will login and send a message to whoever I find is her stone sawyer and asked them to see her on Friday I have discussed with the patient there likely diagnosis, aftercare plan, follow -up plans and my usual and customary return precautions. They verbalized understanding of this. 04/29/20 19:[address] Gibson. He agrees to see the patient this week. Unfortunately the labs were drawn right before she left and her hemoglobin returned at 4. I called, discussed with her son Beena who is bringing her immediately back to be admitted. I will consent for blood transfusion admit overnight. - Vital Signs Vital signs: Temp Pulse Resp BP Pulse Ox 98.5 F 82 18 144/62 H 100 04/29/20 16:48 04/29/20 16:48 04/29/20 16:48 04/29/20 16:48 04/29/20 16:48 - Laboratory Result Diagrams: 04/29/20 18:20 04/29/20 17:00 Laboratory results interpreted by me: 04/29/20 17:00 Glucose 124 H - EKG Interpretation by Me EKG shows normal: Sinus rhythm Rate: Normal Rhythm: NSR - Normalization of T waves in the precordial leads No ST elevation or depression QTC very mildly prolonged First-degree AV block When compared to previous EKG there are: Changes noted Discharge - Discharge Clinical Impression: Atypical chest pain Condition: Good Disposition: HOME, SELF-CARE Additional Instructions: We did not find evidence of a heart attack. Your pain could be due to heartburn, but we have not fully ruled out that it is from coronary artery disease. Please contact your stone sawyer at [facility], whose name you were unable to remember while in our emergency room, to see if they would like to do a stress test this week. Referrals: RONA SMITH MD [Primary Care Provider] - Follow up as needed
[2020-04-29 18:48] LABS: ABSOLUTE BASOPHILS # (AUTO) 0.1 10^3/uL (0.0-0.2); ABSOLUTE LYMPHOCYTES (AUTO) 1.6 10^3/uL (0.5-4.7); ABSOLUTE MONOCYTES (AUTO) 0.5 10^3/uL (0.1-1.4); ABSOLUTE NEUT (AUTO) 2.6 10^3/uL (1.7-8.2); BASOPHILS % (AUTO) 1.1 % (0-2); EOSINOPHILS % (AUTO) 0.9 % (0-6); HEMATOCRIT 17.7 % (36.0-47.0); LYMPHOCYTES % (AUTO) 33.4 % (13-45); MEAN CORPUSCULAR HEMOGLOBIN 15.2 pg (27.0-33.4); MEAN CORPUSCULAR HGB CONC 27.5 g/dL (32.0-36.0); MEAN CORPUSCULAR VOLUME 55 fl (80-97); MONOCYTES % (AUTO) 11.1 % (3-13); PLATELET COUNT 244 10^3/uL (150-450); RED BLOOD COUNT 3.21 10^6/uL (3.72-5.28); RED CELL DISTRIBUTION WIDTH 20.5 % (11.5-14.0); SEGMENTED NEUTROPHILS % (AUTO) 53.5 % (42-78); TOTAL CELLS COUNTED % (AUTO) 100 %; WHITE BLOOD COUNT 4.9 10^3/uL (4.0-10.5)
[2020-04-29 19:16] LABS: ANISOCYTOSIS 2+; HYPOCHROMASIA 4+; OVALOCYTES 1+
[2020-04-29 19:17] LABS: PLATELET COMMENT ADEQUATE; TARGET CELLS SLIGHT; TEAR DROP CELLS SLIGHT
[2020-04-29 19:18] LABS: HEMOGLOBIN 4.9 g/dL (12.0-15.5)
[2020-04-29] MEDS ORDERED: NORMAL SALINE 250 ML IV PRN ×2 (19:50)
[2020-04-29 20:13] LABS: ABSOLUTE RETICS # 0.046 10^6/uL (0.028-0.122); RETICULOCYTE COUNT (AUTO) 1.42 % (0.66-2.85)
[2020-04-29 20:16] LABS: IRON(TIBC) 13.6 ug/dL (37-170)
[2020-04-29] MEDS ORDERED: ACETAMINOPHEN 325 MG TABLET PO PRN (20:28)
[2020-04-29] MEDS ORDERED: ONDANSETRON HCL INJ/PF 4 MG/2 ML SDV IV PRN (20:28)
[2020-04-29 20:55] LABS: FERRITIN 4.85 ng/mL (11.1-264.0)
--- NOTE | 2020-04-29 20:55 | PDOC H&P ---
History of Present Illness Admission Date/PCP: 04/29/20 20:32 RONA SMITH MD History of Present Illness: JESSICA JESUS is a 74 year old female with a history of coronary artery disease, noninsulin-dependent type 2 diabetes mellitus, hypertension, and hyperlipidemia who initially presented with symptoms of heartburn. She was worked up for chest pain in the ER, contact was made with her office rep at [facility], and outpatient follow-up was arranged. However, as she was about to leave her CBC came back showing a hemoglobin of 4.9 and MCV of 55. She has a history of heavy menstrual period several years ago but denies any recent bleeding episodes. Other than feeling like her energy levels were low, she has been feeling fine recently. She said that she has had to get iron transfusions in the past, and she thinks she has had to take an iron supplement in the past, but she does not think she is taking 1 now. Previous lab results here indicate an MCV that is either low or at the low end of normal over a period of several years, with the most recent 1 being checked a little over a year ago, and that 1 was 82. She says she has had a hysterectomy several years ago but other than that she has had no abdominal surgery. Past Medical History Cardiac Medical History: Reports: Coronary Artery Disease, Hyperlipidema, Hypertension Denies: Myocardial Infarction Pulmonary Medical History: Denies: Asthma, Bronchitis, Chronic Obstructive Pulmonary Disease (COPD), Pneumonia Neurological Medical History: Denies: Seizures Endocrine Medical History: Reports: Diabetes Mellitus Type 2 Musculoskeltal Medical History: Reports: Arthritis Hematology: Reports: Anemia - hx Past Surgical History Past Surgical History: Reports: Hysterectomy Social History Smoking Status: Never Smoker Electronic Cigarette use?: No Frequency of Alcohol Use: None Hx Recreational Drug Use: No Hx Prescription Drug Abuse: No Family History Family History: Reviewed & Not Pertinent, CAD, DM, Hyperlipidemia, Hypertension, Thyroid Disfunction Parental Family History Reviewed: Yes Children Family History Reviewed: Yes Sibling(s) Family History Reviewed.: Yes Medication/Allergy Home Medications: Aspirin 81 mg PO DAILY PRN 10/05/13 Propranolol HCl [Propranolol HCl ER] 60 mg PO DAILY 10/05/13 Clopidogrel Bisulfate [Plavix 75 mg Tablet] 75 mg PO DAILY 07/16/14 Ergocalciferol (Vitamin D2) [Vitamin D2] 1.25 mg PO MO 07/16/14 Isosorbide Mononitrate [Isosorbide Mononitrate ER] 30 mg PO DAILY 07/16/14 Docusate Sodium [Colace 100 mg Capsule] 100 mg PO BID #0 capsule 08/10/14 Glipizide [Glucotrol 5 mg Tablet] 5 mg PO QAM #0 tablet 08/10/14 Lisinopril [Prinivil 10 mg Tablet] 10 mg PO DAILY #0 tablet 08/10/14 Allergies/Adverse Reactions: No Known Allergies Allergy (Verified 04/29/20 16:49) Review of Systems All systems: reviewed and no additional remarkable complaints except as stated - All systems were reviewed and were negative except as noted in the HPI Physical Exam Vital Signs: Temp Pulse Resp BP Pulse Ox 98.5 F 82 18 144/62 H 100 04/29/20 16:48 04/29/20 16:48 04/29/20 16:48 04/29/20 16:48 04/29/20 16:48 Intake & Output 04/28/20 04/29/20 04/30/20 06:59 06:59 06:59 Weight 80.2 kg General appearance: PRESENT: no acute distress, cooperative, well-developed, well-nourished Head exam: PRESENT: atraumatic, normocephalic Eye exam: PRESENT: conjunctiva pale, EOMI, PERRLA. ABSENT: conjunctival injection, nystagmus Ear exam: PRESENT: normal external ear exam Neck exam: PRESENT: full ROM. ABSENT: carotid bruit, JVD, lymphadenopathy, meningismus, tenderness, thyromegaly Respiratory exam: PRESENT: clear to auscultation eddie, symmetrical, unlabored. ABSENT: accessory muscle use, chest wall tenderness, crackles, prolonged expiratory phas, rhonchi, tachypnea, wheezes Cardiovascular exam: PRESENT: RRR, +S1, +S2 Pulses: PRESENT: normal carotid pulses Vascular exam: PRESENT: pallor GI/Abdominal exam: PRESENT: normal bowel sounds, soft. ABSENT: distended, guarding, rebound, tenderness Extremities exam: PRESENT: other - Nailbeds were pale. ABSENT: clubbing, pedal edema Musculoskeletal exam: PRESENT: ambulatory, normal inspection. ABSENT: deformity Neurological exam: PRESENT: alert, awake, oriented to person, oriented to place, oriented to situation, CN II-XII grossly intact. ABSENT: motor sensory deficit Psychiatric exam: PRESENT: appropriate affect, normal mood Skin exam: PRESENT: dry, pallor, warm Results Laboratory Results: 04/29/20 18:20 04/29/20 17:00 04/29/20 04/29/20 04/29/20 17:00 17:00 18:20 WBC Cancelled 4.9 RBC Cancelled 3.21 L Hgb Cancelled 4.9 L* Hct Cancelled 17.7 L MCV Cancelled 55 L MCH Cancelled 15.2 L MCHC Cancelled 27.5 L RDW Cancelled 20.5 H Plt Count Cancelled 244 Seg Neutrophils % Cancelled 53.5 Retic Count (auto) Sodium 142.0 Potassium 3.8 Chloride 106 Carbon Dioxide 24 Anion Gap 12 BUN 12 Creatinine 0.85 Est GFR ( Amer) > 60 Glucose 124 H Calcium 9.5 Total Bilirubin 0.5 AST 23 Alkaline Phosphatase 52 Total Protein 7.8 Albumin 4.4 04/29/20 18:20 WBC RBC Hgb Hct MCV MCH MCHC RDW Plt Count Seg Neutrophils % Retic Count (auto) 1.42 Sodium Potassium Chloride Carbon Dioxide Anion Gap BUN Creatinine Est GFR ( Amer) Glucose Calcium Total Bilirubin AST Alkaline Phosphatase Total Protein Albumin 04/29/20 17:00 Troponin I < 0.012 Impressions: Chest X-Ray 04/29/20 16:55 IMPRESSION: No acute cardiopulmonary disease. Hyperinflated lungs which can be seen with obstructive lung disease. Assessment and Plan - Diagnosis (1) Anemia Qualifiers: Anemia type: iron deficiency Iron deficiency anemia type: inadequate dietary iron intake Qualified Code(s): D50.8 - Other iron deficiency anemias Is this a current diagnosis for this admission?: Yes (2) Coronary artery disease Qualifiers: Coronary Disease-Associated Artery/Lesion type: [place] artery [place] vs. transplanted heart: [place] heart Associated angina: without angina Qualified Code(s): I25.10 - Atherosclerotic heart disease of [place] coronary artery without angina pectoris Is this a current diagnosis for this admission?: Yes (3) Hypertension Qualifiers: Hypertension type: essential hypertension Qualified Code(s): I10 - Essential (primary) hypertension Is this a current diagnosis for this admission?: Yes (4) Non-insulin dependent type 2 diabetes mellitus Is this a current diagnosis for this admission?: Yes (5) Hyperlipidemia Qualifiers: Hyperlipidemia type: mixed hyperlipidemia Qualified Code(s): E78.2 - Mixed hyperlipidemia Is this a current diagnosis for this admission?: Yes (6) Atypical chest pain Is this a current diagnosis for this admission?: Yes - Plan Summary Summary: Her chest pain only lasted a few minutes, the description was very atypical and may have been noncardiac. Nonetheless, she has follow-up arranged with her office rep at [facility]. Ischemic evaluation was negative in the ER. Her hemoglobin was 4.9 her MCV was 55. She has not had any bleeding. She seems to have had a low MCV for several years. Slowly progressive iron deficiency is suspected. She has had some packed red blood cells ordered in the ER, and we will follow-up her CBC afterwards to see if she needs any additional units. Iron studies were ordered on her blood before her transfusion was initiated. Vitamin B12 and folate were also checked. I suspect she will need an iron transfusion, and she will likely need to be on an iron supplement for a few months afterwards, taken with vitamin C to help absorption. I encouraged her to make sure that she gets sufficient amounts of leafy green vegetables and red meat to help boost her iron stores. She may also require B12 and folate supplementation. - Time Time Spent with patient: 35 or more minutes Medications reviewed and adjusted accordingly: Yes Anticipated Discharge Disposition: Home, Self Care Anticipated Discharge Timeframe: within 48 hours
[2020-04-30] MEDS ORDERED: FERUMOXYTOL 510 MG in NORMAL SALINE 100 ML IV ONE (10:00)
[2020-04-30 10:26] LABS: ABSOLUTE BASOPHILS # (AUTO) 0.1 10^3/uL (0.0-0.2); ABSOLUTE LYMPHOCYTES (AUTO) 0.9 10^3/uL (0.5-4.7); ABSOLUTE MONOCYTES (AUTO) 0.4 10^3/uL (0.1-1.4); ABSOLUTE NEUT (AUTO) 3.7 10^3/uL (1.7-8.2); BASOPHILS % (AUTO) 1.9 % (0-2); EOSINOPHILS % (AUTO) 0.8 % (0-6); HEMATOCRIT 28.4 % (36.0-47.0); LYMPHOCYTES % (AUTO) 16.8 % (13-45); MEAN CORPUSCULAR HEMOGLOBIN 19.4 pg (27.0-33.4); MEAN CORPUSCULAR HGB CONC 29.5 g/dL (32.0-36.0); MONOCYTES % (AUTO) 8.2 % (3-13); PLATELET COUNT 210 10^3/uL (150-450); RED BLOOD COUNT 4.33 10^6/uL (3.72-5.28); RED CELL DISTRIBUTION WIDTH 32.1 % (11.5-14.0); SEGMENTED NEUTROPHILS % (AUTO) 72.3 % (42-78); TOTAL CELLS COUNTED % (AUTO) 100 %; WHITE BLOOD COUNT 5.1 10^3/uL (4.0-10.5)
[2020-04-30 10:39] LABS: ANION GAP 11 (5-19); BLOOD UREA NITROGEN 11 mg/dL (7-20); CALCIUM 9.3 mg/dL (8.4-10.2); CARBON DIOXIDE 22 mmol/L (22-30); CHLORIDE 108 mmol/L (98-107); GLUCOSE 155 mg/dL (75-110); POTASSIUM 3.7 mmol/L (3.6-5.0)
[2020-04-30 11:21] LABS: HEMOGLOBIN 8.4 g/dL (12.0-15.5); MEAN CORPUSCULAR VOLUME 66 fl (80-97)
[2020-04-30 11:23] LABS: ANISOCYTOSIS 4+; HYPOCHROMASIA 3+; POLYCHROMASIA SLIGHT
[2020-04-30 11:24] LABS: OVALOCYTES 2+; PLATELET COMMENT ADEQUATE; TEAR DROP CELLS SLIGHT
[2020-04-30] MEDS ORDERED: DEXTROSE 40% GEL 15 GM TUBE PO PRN ×2 (18:31)
[2020-04-30] MEDS ORDERED: DEXTROSE 50%-WATER 25 GM/50 ML DISP.SYRIN IV PRN ×2 (18:31)
[2020-04-30] MEDS ORDERED: GLUCAGON,HUMAN RECOMB 1 MG INJ IM PRN (18:31)
--- NOTE | 2020-04-30 18:32 | PDOC PROGRESS REPORT ---
Subjective Date:: 04/30/20 Subjective:: The patient is a 74-year-old female with a past medical history of CAD, hypertension, hyperlipidemia, DM 2, arthritis, and iron deficiency anemia who was admitted 04/29/2020 secondary to anemia (hemoglobin 4.9). Patient was seen on evening rounds. She is found resting in bed, comfortably, on room air. She reports that she is feeling well. She denies further episodes of chest discomfort. She further denies fever, chills, chest pain, palpitations, dyspnea, orthopnea, abdominal pain, nausea vomiting and diarrhea. She is hopeful to discharge home soon. Otherwise, she has no new questions or concerns. No concerns per nursing. Reason For Visit: SEVERE ANEMIA Physical Exam Vital Signs: Temp Pulse Resp BP Pulse Ox 98.8 F 76 17 138/58 H 100 04/30/20 14:15 04/30/20 15:00 04/30/20 14:15 04/30/20 14:15 04/30/20 14:15 Intake & Output 04/29/20 04/30/20 05/01/20 06:59 06:59 06:59 Intake Total 600 100 Balance 600 100 Weight 80.2 kg General appearance: PRESENT: no acute distress, cooperative, well-developed, well-nourished Head exam: PRESENT: atraumatic, normocephalic Eye exam: PRESENT: conjunctiva pink, EOMI, PERRLA. ABSENT: scleral icterus Mouth exam: PRESENT: moist, tongue midline Respiratory exam: PRESENT: clear to auscultation eddie, symmetrical, unlabored, other - Room air. ABSENT: rales, rhonchi, wheezes Cardiovascular exam: PRESENT: RRR, +S1, +S2. ABSENT: diastolic murmur, rubs, systolic murmur Pulses: PRESENT: normal dorsalis pedis pul Vascular exam: PRESENT: normal capillary refill Extremities exam: PRESENT: full ROM. ABSENT: calf tenderness, clubbing, pedal edema Neurological exam: PRESENT: alert, awake, oriented to person, oriented to place, oriented to time, oriented to situation, CN II-XII grossly intact. ABSENT: motor sensory deficit Psychiatric exam: PRESENT: appropriate affect, normal mood. ABSENT: homicidal ideation, suicidal ideation Skin exam: PRESENT: dry, intact, warm. ABSENT: cyanosis, rash Results Laboratory Results: 04/30/20 09:55 04/30/20 09:55 04/29/20 04/29/20 04/29/20 17:00 18:20 18:20 WBC 4.9 RBC 3.21 L Hgb 4.9 L* Hct 17.7 L MCV 55 L MCH 15.2 L MCHC 27.5 L RDW 20.5 H Plt Count 244 Seg Neutrophils % 53.5 Retic Count (auto) 1.42 Sodium Potassium Chloride Carbon Dioxide Anion Gap BUN Creatinine Est GFR ( Amer) Glucose Calcium Iron 13.6 L TIBC 552 H % Saturation 2 Ferritin 4.85 L Vitamin B12 457.0 Folate 11.40 Blood Type Antibody Screen 04/29/20 04/30/20 04/30/20 20:45 09:55 09:55 WBC Cancelled RBC Cancelled Hgb Cancelled Hct Cancelled MCV Cancelled MCH Cancelled MCHC Cancelled RDW Cancelled Plt Count Cancelled Seg Neutrophils % Retic Count (auto) Sodium 140.7 Potassium 3.7 Chloride 108 H Carbon Dioxide 22 Anion Gap 11 BUN 11 Creatinine 0.70 Est GFR ( Amer) > 60 Glucose 155 H Calcium 9.3 Iron TIBC % Saturation Ferritin Vitamin B12 Folate Blood Type O POSITIVE Antibody Screen NEGATIVE 04/30/20 09:55 WBC 5.1 RBC 4.33 Hgb 8.4 L D Hct 28.4 L MCV 66 L D MCH 19.4 L MCHC 29.5 L RDW 32.1 H Plt Count 210 Seg Neutrophils % 72.3 Retic Count (auto) Sodium Potassium Chloride Carbon Dioxide Anion Gap BUN Creatinine Est GFR ( Amer) Glucose Calcium Iron TIBC % Saturation Ferritin Vitamin B12 Folate Blood Type Antibody Screen 04/29/20 04/29/20 17:00 20:45 Troponin I < 0.012 < 0.012 Impressions: Chest X-Ray 04/29/20 16:55 IMPRESSION: No acute cardiopulmonary disease. Hyperinflated lungs which can be seen with obstructive lung disease. Assessment and Plan - Diagnosis (1) Anemia Qualifiers: Anemia type: iron deficiency Iron deficiency anemia type: inadequate dietary iron intake Qualified Code(s): D50.8 - Other iron deficiency anemias Is this a current diagnosis for this admission?: Yes Plan: Hgb 4.9-> 8.4 Anemia panel confirms iron deficiency anemia. Occult stool pending. Now status post 2 units PRBC and IV Feraheme. Patient reports history of iron deficiency anemia. Follow-up CBC; if stable, plan to discharge with outpatient hematology follow- up. (2) Coronary artery disease Qualifiers: Coronary Disease-Associated Artery/Lesion type: [place] artery [place] vs. transplanted heart: [place] heart Associated angina: without angina Qualified Code(s): I25.10 - Atherosclerotic heart disease of [place] coronary artery w ithout angina pectoris Is this a current diagnosis for this admission?: Yes Plan: Holding daily Aspirin. Continue home dose atorvastatin and isosorbide. Cardiac diet. (3) Hyperlipidemia Qualifiers: Hyperlipidemia type: mixed hyperlipidemia Qualified Code(s): E78.2 - Mixed hyperlipidemia Is this a current diagnosis for this admission?: Yes Plan: Home dose atorvastatin. Cardiac diet. (4) Hypertension Qualifiers: Hypertension type: essential hypertension Qualified Code(s): I10 - Essential (primary) hypertension Is this a current diagnosis for this admission?: Yes Plan: Continue home dose lisinopril, propranolol, and isosorbide. Cardiac diet. (5) Non-insulin dependent type 2 diabetes mellitus Is this a current diagnosis for this admission?: Yes Plan: Continue home dose glipizide. Accu-Cheks before meals and at bedtime with Humalog for sliding scale coverage. Outpatient follow-up with PCP. (6) Atypical chest pain Is this a current diagnosis for this admission?: Yes Plan: Resolved. No further episodes. Continue home dose isosorbide. Outpatient follow-up with established water team leader as previously arranged. - Time Time Spent with patient: 25-34 minutes Medications reviewed and adjusted accordingly: Yes Anticipated Discharge Disposition: Home, Self Care Anticipated Discharge Timeframe: within 24 hours
[2020-04-30] MEDS: INSULIN LISPRO 100 UNIT/ML 3 ML VIAL SUBCUT SCH (21:05)
[2020-05-01 06:39] LABS: HEMATOCRIT 26.9 % (36.0-47.0); HEMOGLOBIN 8.1 g/dL (12.0-15.5); MEAN CORPUSCULAR HEMOGLOBIN 19.3 pg (27.0-33.4); RED BLOOD COUNT 4.19 10^6/uL (3.72-5.28); RED CELL DISTRIBUTION WIDTH 31.5 % (11.5-14.0); WHITE BLOOD COUNT 5.9 10^3/uL (4.0-10.5)
[2020-05-01 07:28] LABS: PLATELET COUNT 180 10^3/uL (150-450)
[2020-05-01] MEDS ORDERED: GLIPIZIDE 5 MG TABLET PO SCH (08:00)
[2020-05-01] MEDS: INSULIN LISPRO 100 UNIT/ML 3 ML VIAL SUBCUT SCH (08:25)
[2020-05-01] MEDS ORDERED: ISOSORBIDE MONONITRATE 30 MG TAB.ER.24H PO SCH (10:00)
[2020-05-01] MEDS ORDERED: ERGOCALCIFEROL (VITAMIN D2) 50000 UNIT (1.25 MG) CAPSULE PO SCH (10:00)
[2020-05-01] MEDS ORDERED: LISINOPRIL 10 MG TABLET PO SCH (10:00)
[2020-05-01] MEDS ORDERED: PROPRANOLOL HCL 60 MG PO SCH (10:00)
[2020-05-01 11:37] VITALS: BP 138/58
[2020-05-01 12:06] LABS: PATH REVIEW PATHOLOGIST REVIEWED
--- NOTE | 2020-05-01 17:02 | PDOC DISCHARGE SUMMARY ---
Impression - Admit/DC Date/PCP Admission Date/Primary Care Provider: 04/29/20 20:32 RONA SMITH MD Discharge Date: 05/01/20 - Discharge Diagnosis (1) Anemia Is this a current diagnosis for this admission?: Yes (2) Coronary artery disease Is this a current diagnosis for this admission?: Yes (3) Hyperlipidemia Is this a current diagnosis for this admission?: Yes (4) Hypertension Is this a current diagnosis for this admission?: Yes (5) Non-insulin dependent type 2 diabetes mellitus Is this a current diagnosis for this admission?: Yes (6) Atypical chest pain Is this a current diagnosis for this admission?: Yes - Additional Information Discharge Diet: Cardiac Discharge Activity: Activity As Tolerated, Balance Activity w/Rest, Slowly Increase Activity Referrals: ELIZABETH MORALES MD [ACTIVE STAFF] - 05/30/20 2:45 pm (Follow up in 2-3 weeks for iron defficiency anemia.) RONA SMITH MD [Primary Care Provider] - (follow up within 1 week.) Prescriptions: Ferrous Sulfate 325 mg PO BIDACBS #60 tablet. Home Medications: Propranolol HCl [Propranolol HCl ER] 60 mg PO DAILY 10/05/13 Isosorbide Mononitrate [Isosorbide Mononitrate ER] 30 mg PO DAILY 07/16/14 Aspirin [Ecotrin 81 mg EC Tablet] 81 mg PO DAILY 04/30/20 Ergocalciferol (Vitamin D2) [Drisdol 50,000 unit (1.25MG) Capsule] 50,000 unit PO MO@1000 04/30/20 Glipizide [Glucotrol 5 mg Tablet] 2.5 mg PO QAM 04/30/20 Lisinopril [Prinivil 10 mg Tablet] 40 mg PO DAILY 04/30/20 Acetaminophen [Tylenol 325 mg Tablet] 650 mg PO Q4HP PRN tablet 05/01/20 Ferrous Sulfate 325 mg PO BIDACBS #60 tablet. 05/01/20 History of Present Illiness History of Present Illness: Per H&P by Dr. Dempsey: JESSICA JESUS is a 74 year old female with a history of coronary artery disease, noninsulin-dependent type 2 diabetes mellitus, hypertension, and hyperlipidemia who initially presented with symptoms of heartburn. She was worked up for chest pain in the ER, contact was made with her primary operator at [facility], and outpatient follow-up was arranged. However, as she was about to leave her CBC came back showing a hemoglobin of 4.9 and MCV of 55. She has a history of heavy menstrual period several years ago but denies any recent bleeding episodes. Other than feeling like her energy levels were low, she has been feeling fine recently. She said that she has had to get iron transfusions in the past, and she thinks she has had to take an iron supplement in the past, but she does not think she is taking 1 now. Previous lab results here indicate an MCV that is either low or at the low end of normal over a period of several years, with the most recent 1 being checked a little over a year ago, and that 1 was 82. She says she has had a hysterectomy several years ago but other than that she has had no abdominal surgery. Hospital Course Hospital Course: (1) Anemia Stable; asymptomatic. Hgb 4.9-> 8.4-> 8.1 Anemia panel confirms iron deficiency anemia. Now status post 2 units PRBC and IV Feraheme. Patient reports history of iron deficiency anemia. Recommend continued oral iron sulfate supplementation and outpatient hematology follow-up. (2) Coronary artery disease Continue home dose aspirin, atorvastatin and isosorbide. Cardiac diet. (3) Hyperlipidemia Home dose atorvastatin. Cardiac diet. (4) Hypertension Continue home dose lisinopril, propranolol, and isosorbide. Cardiac diet. (5) Non-insulin dependent type 2 diabetes mellitus Continue home dose glipizide. Outpatient follow-up with PCP. (6) Atypical chest pain Resolved; no further episodes. Continue home dose isosorbide. Outpatient follow-up with established primary operator as previously arranged. Physical Exam Vital Signs: Temp Pulse Resp BP Pulse Ox 98.2 F 73 16 138/58 H 98 05/01/20 11:35 05/01/20 11:35 05/01/20 11:35 05/01/20 11:35 05/01/20 11:35 Intake & Output 04/30/20 05/01/20 05/02/20 06:59 06:59 06:59 Intake Total 600 550 957 Balance 600 550 957 Weight 80.2 kg 80 kg 79.3 kg General appearance: PRESENT: no acute distress, cooperative, well-developed, well-nourished Head exam: PRESENT: atraumatic, normocephalic Eye exam: PRESENT: conjunctiva pink, EOMI, PERRLA. ABSENT: scleral icterus Mouth exam: PRESENT: moist, tongue midline Respiratory exam: PRESENT: clear to auscultation eddie, symmetrical, unlabored, other - Room air. ABSENT: rales, rhonchi, wheezes Cardiovascular exam: PRESENT: RRR. ABSENT: diastolic murmur, rubs, systolic murmur Pulses: PRESENT: normal dorsalis pedis pul Vascular exam: PRESENT: normal capillary refill Extremities exam: PRESENT: full ROM. ABSENT: calf tenderness, clubbing, pedal edema Musculoskeletal exam: PRESENT: ambulatory Neurological exam: PRESENT: alert, awake, oriented to person, oriented to place, oriented to time, oriented to situation, CN II-XII grossly intact. ABSENT: motor sensory deficit Psychiatric exam: PRESENT: appropriate affect, normal mood. ABSENT: homicidal ideation, suicidal ideation Skin exam: PRESENT: dry, intact, warm. ABSENT: cyanosis, rash Results Laboratory Results: WBC 5.9 10^3/uL (4.0-10.5) 05/01/20 05:30 RBC 4.19 10^6/uL (3.72-5.28) 05/01/20 05:30 Hgb 8.1 g/dL (12.0-15.5) L 05/01/20 05:30 Hct 26.9 % (36.0-47.0) L 05/01/20 05:30 MCV 64 fl (80-97) L 05/01/20 05:30 MCH 19.3 pg (27.0-33.4) L 05/01/20 05:30 MCHC 30.0 g/dL (32.0-36.0) L 05/01/20 05:30 RDW 31.5 % (11.5-14.0) H 05/01/20 05:30 Plt Count 180 10^3/uL (150-450) 05/01/20 05:30 Lymph % (Auto) 16.8 % (13-45) 04/30/20 09:55 Allen % (Auto) 8.2 % (3-13) 04/30/20 09:55 Eos % (Auto) 0.8 % (0-6) 04/30/20 09:55 Baso % (Auto) 1.9 % (0-2) 04/30/20 09:55 Reticulocyte # 0.046 10^6/uL (0.028-0.122) 04/29/20 18:20 Absolute Neuts (auto) 3.7 10^3/uL (1.7-8.2) 04/30/20 09:55 Absolute Lymphs (auto) 0.9 10^3/uL (0.5-4.7) 04/30/20 09:55 Absolute Monos (auto) 0.4 10^3/uL (0.1-1.4) 04/30/20 09:55 Absolute Eos (auto) 0.0 10^3/uL (0.0-0.6) 04/30/20 09:55 Absolute Basos (auto) 0.1 10^3/uL (0.0-0.2) 04/30/20 09:55 Seg Neutrophils % 72.3 % (42-78) 04/30/20 09:55 Platelet Estimate Cancelled 04/30/20 09:55 Platelet Comment ADEQUATE 04/30/20 09:55 Polychromasia SLIGHT 04/30/20 09:55 Hypochromasia 3+ 04/30/20 09:55 Anisocytosis 4+ 04/30/20 09:55 Microcytosis 3+ 04/30/20 09:55 Target Cells SLIGHT 04/29/20 18:20 Tear Drop Cells SLIGHT 04/30/20 09:55 Ovalocytes 2+ 04/30/20 09:55 Retic Count (auto) 1.42 % (0.66-2.85) 04/29/20 18:20 PT 14.4 SEC (11.4-15.4) 04/29/20 17:00 INR 1.10 04/29/20 17:00 Sodium 140.7 mmol/L (137-145) 04/30/20 09:55 Potassium 3.7 mmol/L (3.6-5.0) 04/30/20 09:55 Chloride 108 mmol/L (98-107) H 04/30/20 09:55 Carbon Dioxide 22 mmol/L (22-30) 04/30/20 09:55 Anion Gap 11 (5-19) 04/30/20 09:55 BUN 11 mg/dL (7-20) 04/30/20 09:55 Creatinine 0.70 mg/dL (0.52-1.25) 04/30/20 09:55 Est GFR ( Amer) > 60 (>60) 04/30/20 09:55 Est GFR (MDRD) Non-Af > 60 (>60) 04/30/20 09:55 Glucose 155 mg/dL (75-110) H 04/30/20 09:55 POC Glucose 79 mg/dL (70-110) 05/01/20 12:26 Calcium 9.3 mg/dL (8.4-10.2) 04/30/20 09:55 Iron 13.6 ug/dL (37-170) L 04/29/20 17:00 TIBC 552 ug/dL (250-450) H 04/29/20 17:00 % Saturation 2 % 04/29/20 17:00 Ferritin 4.85 ng/mL (11.1-264.0) L 04/29/20 17:00 Total Bilirubin 0.5 mg/dL (0.2-1.3) 04/29/20 17:00 Direct Bilirubin 0.1 mg/dL (0.0-0.4) 04/29/20 17:00 Neonat Total Bilirubin Not Reportable 04/29/20 17:00 Neonat Direct Bilirubin Not Reportable 04/29/20 17:00 Neonat Indirect Bili Not Reportable 04/29/20 17:00 AST 23 U/L (14-36) 04/29/20 17:00 ALT 12 U/L (<35) 04/29/20 17:00 Alkaline Phosphatase 52 U/L (38-126) 04/29/20 17:00 Troponin I < 0.012 ng/mL 04/29/20 20:45 Total Protein 7.8 g/dL (6.3-8.2) 04/29/20 17:00 Albumin 4.4 g/dL (3.5-5.0) 04/29/20 17:00 Vitamin B12 457.0 pg/mL (239-931) 04/29/20 17:00 Folate 11.40 ng/mL (>2.76) 04/29/20 17:00 Slides for Path Review Cancelled 04/30/20 09:55 Blood Type O POSITIVE 04/29/20 20:45 Blood Type Confirm O POSITIVE 04/29/20 21:45 Antibody Screen NEGATIVE 04/29/20 20:45 Crossmatch See Detail 04/29/20 20:45 04/29/20 04/29/20 17:00 20:45 Troponin I < 0.012 < 0.012 Impressions: Chest X-Ray 04/29/20 16:55 IMPRESSION: No acute cardiopulmonary disease. Hyperinflated lungs which can be seen with obstructive lung disease. Plan Plan of Treatment: Patient is discharged home in stable condition. She is advised to follow-up with her primary care provider within 1 week. Encouraged her to discuss with her PCP screening colonoscopies. She is recommended to establish with imaging analyst for further evaluation and management of severe iron deficiency anemia. She has been provided a follow-up appointment on 05/30/[address] Morales. Follow up with established primary operator within 1 month. She is encouraged to eat a cardiac diet. Take medications as prescribed. Return to the emergency department, as needed, for concerning symptoms. Time Spent: Greater than 30 Minutes Stroke Is this a Stroke Patient?: No Acute Heart Failure Is this a Heart Failure Patient?: No
[2020-05-02 11:17] LABS: MEAN CORPUSCULAR VOLUME 64 fl (80-97)
[2020-05-03 14:17] LABS: PATH REVIEW PATHOLOGIST REVIEWED
== END 2020-05-01 13:33 | disposition home or self-care (01) ==
LOC: ER 16:23 → EH 20:32 → OBSVTOIN 20:32 → INTOOBSV 20:32 → 5 04-30 13:55
PROVIDERS: ADMIT Family Medicine; ATTEND Registered Nurse
DX: D50.8 Other iron deficiency anemias (principal); R07.89 Other chest pain; I25.10 Atherosclerotic heart disease of native coronary artery without angina pectoris; E78.2 Mixed hyperlipidemia; I10 Essential (primary) hypertension; E11.9 Type 2 diabetes mellitus without complications; M19.90 Unspecified osteoarthritis, unspecified site; Z79.899 Other long term (current) drug therapy; Z79.82 Long term (current) use of aspirin; Z79.84 Long term (current) use of oral hypoglycemic drugs; Z90.710 Acquired absence of both cervix and uterus; Z82.49 Family history of ischemic heart disease and other diseases of the circulatory system
CPT/HCPCS: 93005; 99285; 86900; 86901; 36415 ×3; 36430; 86850; 82962 ×2; 82607; 82728; 82746; 83540; 83550; 85025; 85027; 85610; 85045; 80048; 80053; 84484; 86920; 71045; 93010; P9016 ×2; Q0138; A9270 ×4; J7050; J3490